=== PATIENT | female | born 1965 | race Hispanic/Latino ===

== ENCOUNTER 2018-07-30 15:58 | Emergency (ER) | payer BC ==
[2018-07-30 17:30] LABS: Urine Blood NEGATIVE (NEG); Urine Glucose NEGATIVE (NEG); Urine Protein NEGATIVE (NEG); Urine pH 6.5 (5.0-7.0)
--- NOTE | 2018-07-30 17:45 | RAD REPORT ---
EXAM DESCRIPTION: CT - Head Brain Wo Cont - 07/30/2018 5:38 pm CLINICAL HISTORY: Headache, dizziness COMPARISON: None. TECHNIQUE: Axial 5 mm thick images of the head were obtained without IV contrast. All CT scans are performed using dose optimization technique as appropriate and may include automated exposure control or mA/KV adjustment according to patient size. FINDINGS: No intracranial hemorrhage, mass, edema or shift of mid-line structures. No acute infarcti on changes seen. No abnormal extra-axial fluid collections. Ventricles are normal. Mastoid air cells and visualized portions of the paranasal sinuses are clear. No acute bony findings. IMPRESSION: Negative non-contrast CT head examination.
[2018-07-30] MEDS ORDERED: NA CHLORIDE 0.9% 1,000 ML ONE (18:07)
[2018-07-30] MEDS ORDERED: NA CHLORIDE 0.9% 50 ML IV ONE (18:07)
[2018-07-30] MEDS ORDERED: METOCLOPRAMIDE 10 MG/2mL INJ ONE (18:07)
[2018-07-30] MEDS ORDERED: KETOROLAC 30 MG/ML INJ ONE (18:07)
[2018-07-30] MEDS ORDERED: DIPHENHYDRAMINE 50 MG/ML VIAL ONE (18:07)
--- NOTE | 2018-07-30 19:22 | EDPHYS ---
Physician Documentation [facility] Name: Kaitlin Salas Age: 52 yrs Sex: Female : 1965 Arrival Date: 07/30/2018 Time: 16:03 Bed 30 Private MD: None, None ED Physician John Underwood HPI: 07/30 21:00 This 52 yrs old Female presents to ER via Ambulatory with complaints of kb Headache, Dizziness. 21:00 The patient complains of pain to the left occipital area and right occipital area. The kb patient describes the headache as constant. Onset: The symptoms/episode began/occurred 2.5 month(s) ago. Associated signs and symptoms: Pertinent positives: dizziness, Pertinent negatives: altered mental status, fever, malaise, nausea, neck stiffness, paresthesias, Photophobia rash, sinus congestion, sinus tenderness, vision changes, vision loss, vomiting, weakness, vertigo. Severity of symptoms: At its worst the pain was mild, moderate, in the emergency department the pain is unchanged. Headache History: Denies prior headaches. The symptoms are alleviated by nothing. the symptoms are aggravated by nothing. The patient has not experienced similar symptoms in the past. The patient has been recently seen by a physician: the ER physician, out of Town, 1 month(s) ago, with similar presenting complaints. 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 - Social history:: Smoking status: Patient/guardian denies using tobacco. - Ebola Screening: : No symptoms or risks identified at this time. ROS: 21:00 Constitutional: Negative for fever, chills, and weight loss, Eyes: Negative for injury, kb pain, redness, and discharge, ENT: Negative for injury, pain, and discharge, Neck: Negative for injury, pain, and swelling, Cardiovascular: Negative for chest pain, palpitations, and edema, Respiratory: Negative for shortness of breath, cough, wheezing, and pleuritic chest pain, Abdomen/GI: Negative for abdominal pain, nausea, vomiting, diarrhea, and constipation, Back: Negative for injury and pain, : Negative for injury, bleeding, discharge, and swelling, MS/Extremity: Negative for injury and deformity, Skin: Negative for injury, rash, and discoloration. 21:00 Neuro: Positive for dizziness, headache. Exam: 21:00 Constitutional: This is a well developed, well nourished patient who is awake, alert, kb and in no acute distress. Head/Face: Normocephalic, atraumatic. Eyes: Pupils equal round and reactive to light, extra-ocular motions intact. Lids and lashes normal. Conjunctiva and sclera are non-icteric and not injected. Cornea within normal limits. Periorbital areas with no swelling, redness, or edema. ENT: Nares patent. No nasal discharge, no septal abnormalities noted. Tympanic membranes are normal and external auditory canals are clear. Oropharynx with no redness, swelling, or masses, exudates, or evidence of obstruction, uvula midline. Mucous membranes moist. Neck: Trachea midline, no thyromegaly or masses palpated, and no cervical lymphadenopathy. Supple, full range of motion without nuchal rigidity, or vertebral point tenderness. No Meningismus. Chest/axilla: Normal chest wall appearance and motion. Nontender with no deformity. No lesions are appreciated. Cardiovascular: Regular rate and rhythm with a normal S1 and S2. No gallops, murmurs, or rubs. Normal PMI, no JVD. No pulse deficits. Respiratory: Lungs have equal breath sounds bilaterally, clear to auscultation and percussion. No rales, rhonchi or wheezes noted. No increased work of breathing, no retractions or nasal flaring. Abdomen/GI: Soft, non-tender, with normal bowel sounds. No distension or tympany. No guarding or rebound. No evidence of tenderness throughout. Back: No spinal tenderness. No costovertebral tenderness. Full range of motion. Skin: Warm, dry with normal turgor. Normal color with no rashes, no lesions, and no evidence of cellulitis. MS/ Extremity: Pulses equal, no cyanosis. Neurovascular intact. Full, normal range of motion. Neuro: Awake and alert, GCS 15, oriented to person, place, time, and situation. Cranial nerves II-XII grossly intact. Motor strength 5/5 in all extremities. Sensory grossly intact. Cerebellar exam normal. Normal gait. Vital Signs: 16:07 BP 156 / 70; Pulse 85; Resp 16; Temp 97.2; Pulse Ox 98% ; Pain 5/10; sv 16:33 BP 145 / 64; Pulse 81; Resp 18; Temp 98.7(O); Pulse Ox 100% on R/A; Pain 9/10; mg2 17:05 BP 155 / 78 Supine; Pulse 81; mg2 17:05 BP 161 / 83 Sitting; Pulse 82; mg2 17:05 BP 148 / 83 Standing; Pulse 79; mg2 19:44 BP 127 / 84; Pulse 80; Resp 18; Pulse Ox 100% on R/A; Pain 0/10; mg2 Nahomy Coma Score: 20:59 Eye Response: spontaneous(4). Verbal Response: oriented(5). Motor Response: obeys kb commands(6). Total: 15. MDM: 16:56 Patient medically screened. kb 20:59 Data reviewed: vital signs, nurses notes. Data interpreted: Pulse oximetry: on room air kb is 100 %. Interpretation: normal. Counseling: I had a detailed discussion with the patient and/or guardian regarding: the historical points, exam findings, and any diagnostic results supporting the discharge/admit diagnosis, lab results, radiology results, the need for outpatient follow up, a family practitioner, to return to the emergency department if symptoms worsen or persist or if there are any questions or concerns that arise at home. ED course: Pain resolved after treatment. 07/30 17:23 Order name: Urine Dipstick--Ancillary (enter results); Complete Time: 17:32 eb 07/30 17:23 Order name: Urine --Ancillary (enter results); Complete Time: 17:32 eb 07/30 16:57 Order name: CT Head Brain wo Cont; Complete Time: 17:48 kb 07/30 17:00 Order name: Orthostatics; Complete Time: 17:07 kb 07/30 17:00 Order name: Urine Dipstick-Ancillary (obtain specimen); Complete Time: 17:12 kb 07/30 17:53 Order name: IV Start; Complete Time: 18:09 kb Administered Medications: 18:09 Drug: TORadol 30 mg Route: IVP; Site: right antecubital; mg2 19:42 Follow up: Response: No adverse reaction; Marked relief of symptoms mg2 18:10 Drug: NS 0.9% 1000 ml Route: IV; Rate: 1000 ml; Site: right antecubital; mg2 19:43 Follow up: Response: No adverse reaction; IV Status: Completed infusion mg2 18:10 Drug: Reglan 10 mg Route: IVP; Site: right antecubital; mg2 19:43 Follow up: Response: No adverse reaction; Marked relief of symptoms mg2 18:10 Drug: Benadryl 12.5 mg Route: IVP; Site: right antecubital; mg2 19:42 Follow up: Response: No adverse reaction; Marked relief of symptoms mg2 Disposition: 07/30/18 19:21 Discharged to Home. Impression: Headache. - Condition is Stable. - Discharge Instructions: General Headache Without Cause, [id number]. - Medication Reconciliation Form, Thank You Letter, Antibiotic Education, Prescription Opioid Use form. - Follow up: Emergency Department; When: As needed; Reason: Worsening of condition. Follow up: Private Physician; When: 2 - 3 days; Reason: Recheck today's complaints, Continuance of care, Re-evaluation by your physician. Addendum: 08/03/2018 07:13 Co-signature as Attending Physician, John Underwood MD. r n Signatures: Dispatcher [employer] EDFL Yady Diggs, FAMILY PROGRAM SPECIALIST-C FAMILY PROGRAM SPECIALIST-CkMarla Levy RN RN sv Nieto, Roman, MD MD rn Gardose, Michele, RN RN mg2 Corrections: (The following items were deleted from the chart) 07/30 19:45 19:21 07/30/2018 19:21 Discharged to Home. Impression: Headache. Condition is Stable. mg2 Forms are Medication Reconciliation Form, Thank You Letter, Antibiotic Education, Prescription Opioid Use. Follow up: Emergency Department; When: As needed; Reason: Worsening of condition. Follow up: Private Physician; When: 2 - 3 days; Reason: Recheck today's complaints, Continuance of care, Re-evaluation by your physician. kb
--- NOTE | 2018-07-30 19:22 | ER ---
Nurse's Notes [facility] Name: Kaitlin Salas Age: 52 yrs Sex: Female : 1965 Arrival Date: 07/30/2018 Time: 16:03 Bed 30 Private MD: None, None Diagnosis: Headache Presentation: 07/30 16:06 Presenting complaint: Patient states: occipital headache, dizziness, "her ears hear sv some kind of noise" x 1 month. Transition of care: patient was not received from another setting of care. Onset of symptoms was June 2018. Care prior to arrival: None. 16:06 Method Of Arrival: Ambulatory sv 16:06 Acuity: LEONID 3 sv 17:07 Risk Assessment: Do you want to hurt yourself or someone else? Patient reports no mg2 desire to harm self or others. Initial Sepsis Screen: Does the patient meet any 2 criteria? No. Patient's initial sepsis screen is negative. Does the patient have a suspected source of infection? No. Patient's initial sepsis screen is negative. Triage Assessment: 17:06 Headache History: The patient has had previous headaches and this one is more severe mg2 than previous episodes. General: Appears in no apparent distress. comfortable, Behavior is calm, cooperative. Pain: Also complains of no other associated symptoms. Pain: Complains of pain in head/occipital. 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 - Social history:: Smoking status: Patient/guardian denies using tobacco. - Ebola Screening: : No symptoms or risks identified at this time. Screenin:38 Abuse screen: Denies threats or abuse. Denies injuries from another. Nutritional mg2 screening: No deficits noted. Tuberculosis screening: No symptoms or risk factors identified. Fall Risk Secondary diagnosis (15 points) dizziness. Assessment: 16:58 General: Appears in no apparent distress. comfortable, Behavior is calm, cooperative. mg2 Pain: Complains of pain in head Pain does not radiate. Pain currently is 9 out of 10 on a pain scale. Quality of pain is described as aching, Pain began gradually, Is intermittent. Neuro: Level of Consciousness is awake, alert, obeys commands, Oriented to person, place, time, situation. Cardiovascular: Capillary refill < 3 seconds Patient's skin is warm and dry. Respiratory: Airway is patent Respiratory effort is even, unlabored, Respiratory pattern is regular, symmetrical. GI: No signs and/or symptoms were reported involving the gastrointestinal system. : No signs and/or symptoms were reported regarding the genitourinary system. EENT: No signs and/or symptoms were reported regarding the EENT system. Derm: Skin is intact, is healthy with good turgor, Skin is pink, warm \\T\\ dry. normal. Musculoskeletal: No signs and/or symptoms reported regarding the musculoskeletal system. 19:43 Reassessment: Patient appears in no apparent distress at this time. patient improved. mg2 Vital Signs: 16:07 BP 156 / 70; Pulse 85; Resp 16; Temp 97.2; Pulse Ox 98% ; Pain 5/10; sv 16:33 BP 145 / 64; Pulse 81; Resp 18; Temp 98.7(O); Pulse Ox 100% on R/A; Pain 9/10; mg2 17:05 BP 155 / 78 Supine; Pulse 81; mg2 17:05 BP 161 / 83 Sitting; Pulse 82; mg2 17:05 BP 148 / 83 Standing; Pulse 79; mg2 19:44 BP 127 / 84; Pulse 80; Resp 18; Pulse Ox 100% on R/A; Pain 0/10; mg2 Nahomy Coma Score: 20:59 Eye Response: spontaneous(4). Verbal Response: oriented(5). Motor Response: obeys kb commands(6). Total: 15. ED Course: 16:03 Patient arrived in ED. mr 16:03 None, None is Private Physician. mr 16:07 Triage completed. sv 16:08 Arm band placed on. sv 16:38 Shaq Torres, BRANDY is Primary Nurse. mg2 16:56 Yady Diggs FNP-C [facility]. kb 16:56 John Underwood MD is Attending Physician. kb 17:05 No provider procedures requiring assistance completed. mg2 17:07 Patient has correct armband on for positive identification. mg2 17:38 CT completed. Patient tolerated procedure well. Patient moved back from CT. nj 17:39 CT Head Brain wo Cont In Process Unspecified. EDMS 18:11 Inserted saline lock: 20 gauge in right antecubital area, using aseptic technique. mg2 Blood collected. 19:43 IV discontinued, intact, bleeding controlled, No redness/swelling at site. Pressure mg2 dressing applied. Administered Medications: 18:09 Drug: TORadol 30 mg Route: IVP; Site: right antecubital; mg2 19:42 Follow up: Response: No adverse reaction; Marked relief of symptoms mg2 18:10 Drug: NS 0.9% 1000 ml Route: IV; Rate: 1000 ml; Site: right antecubital; mg2 19:43 Follow up: Response: No adverse reaction; IV Status: Completed infusion mg2 18:10 Drug: Reglan 10 mg Route: IVP; Site: right antecubital; mg2 19:43 Follow up: Response: No adverse reaction; Marked relief of symptoms mg2 18:10 Drug: Benadryl 12.5 mg Route: IVP; Site: right antecubital; mg2 19:42 Follow up: Response: No adverse reaction; Marked relief of symptoms mg2 Outcome: 19:21 Discharge ordered by . kb 19:44 Discharged to home ambulatory, with family. mg2 19:44 Condition: stable 19:44 Discharge instructions given to patient, family, Instructed on discharge instructions, follow up and referral plans. Demonstrated understanding of instructions, follow-up care. 19:45 Patient left the ED. mg2 Signatures: Dispatcher [employer] EDMS Yady Diggs, ANABELL-C CARDIOVASCULAR OR NURSE-Marla Jones RN RN sv Rivera, Radha Haynes, Shaq Baptiste RN RN mg2 Corrections: (The following items were deleted from the chart) 16:08 16:06 Presenting complaint: Patient states: occipital headache, "her ears hear some sv kind of noise" x 1 month. sv 16:08 16:06 Acuity: LEONID 4 sv sv 17:37 17:05 BP 155 / 78 Supine; mg2 mg2 17:37 17:05 BP 161 / 83 Sitting; mg2 mg2 17:37 17:05 BP 148 / 83 Standing; mg2 mg2 18:11 17:05 Patient did not have IV access during this emergency room visit. mg2 mg2
== END 2018-07-30 19:45 | disposition home or self-care (01) ==
LOC: ER 15:58
DX: R51 Headache (principal)
CPT/HCPCS: 70450; 81003; 81025; J2765; J7030